=== PATIENT | female | born 1970 | race African-American/Black ===

== ENCOUNTER 2024-06-18 22:07 | Emergency (ER) | payer BC, SELFPAY ==
[2024-06-18 22:10] VITALS: BP 187/103
[2024-06-18 22:13] VITALS: BP 177/104
--- NOTE | 2024-06-18 22:46 | EDRN ---
Orders were placed in triage for EKG and blood work, confirmed none of these things were done in triage.
[2024-06-18 22:49] VITALS: BP 150/80
--- NOTE | 2024-06-18 22:57 | ED.GENMED ---
History of Present Illness
General
Chief Complaint: Blood Pressure Problem
Source: patient
Exam Limitations: none
Time Seen by Provider: 06/18/24 22:52
History of Present Illness
History of Present Illness:
See MDM
Past History
Past History
ED Past Medical History: HTN
ED Past Surgical History: None
Social History
Tobacco: Non-smoker
Alcohol: None
Phy Exam
Physical Exam
Physical Exam:
See MDM
Course
Orders/Labs/Results
Orders:
Orders
06/18/24 22:24
Electrocardiogram (*1) Urgent
Reason for Study: Hypertension, Benign
06/18/24 22:25
EKG- Treatment ONCE
06/18/24 22:57
Amlodipine [Norvasc] 10 mg PO ONCE ONE
06/18/24 23:15
CMP [Comprehensive Metabolic Panel] Urgent
Complete Blood Count/With Diff Urgent
Troponin I Urgent
06/19/24 00:02
CT Head W/o Iv Contrast Urgent
Reason For Exam: sudden onset headache
Abnormal Lab Results
06/18/24
23:15
Glucose 120 H mg/dl
(70-99)
06/18/24 23:15
06/18/24 23:15
Vital Signs
Initial and Last Documented VS:
Initial Vital Signs
Temp Pulse Resp BP Pulse Ox
98.4 F 69 16 187/103 100
06/18/24 22:10 06/18/24 22:10 06/18/24 22:10 06/18/24 22:10 06/18/24 22:10
Last Documented Vital Signs
Temp Pulse Resp BP Pulse Ox
98.4 F 66 16 141/76 100
06/18/24 22:10 06/19/24 01:27 06/19/24 01:27 06/19/24 01:27 06/19/24 01:27
MDM/Problems Addressed
Differential Diagnosis Includes:
HPI and MDM Narrative:
54-year-old female presenting for evaluation of sudden onset headache. This occurred around 9 PM. Patient states she was sitting down working when she noted it. She describes a headache as throbbing and to the right and left side of her scalp.
The headache has since improved. Patient found to be hypertensive on arrival and she does acknowledge that she has not taking her amlodipine about a week. She states has been busy and unable to pick it up at the pharmacy. Will give dose of
amlodipine here. Will obtain basic blood work to rule out any evidence of hypertension emergency. Given sudden onset of headache, will obtain CT head
Physical exam
General: Well appearing and non-toxic
HEENT: protecting airway. Pupils equal reactive. EOMI
Neck: appears supple
CV: No evidence of cyanosis. Regular rate and rhythm
Resp: No accessory muscle use
Abd: Non-distended
Extremities: No deformities
Neuro: alert. No focal deficit
Psych: Normal affect
Skin: Intact
Problems Addressed including Acute and Chronic Conditions affecting care:
1. Sudden onset headache
Acuity: acute
Prognosis: stable
Details: Will obtain CT head to rule out subarachnoid
2. Hypertension
Acuity: acute on chronic
Prognosis: stable
Details: Will provide her dose of amlodipine and obtain basic blood work to rule out any evidence of endorgan damage
Updates
CT head negative. Blood work without evidence of endorgan damage. Patient was comfortable going home and remains symptom-free
Differential Diagnosis (but not limited to): Pretension, medication noncompliance, subarachnoid hemorrhage
Testing considered: CTA
Drug therapy (if applicable): OTC meds, please see d/c instruction regarding Rx drugs
Amount and/or Complexity of Data Reviewed
Clinical info obtained from: Patient
External data reviewed: N/A
Labs I independently reviewed (but not limited to): Troponin negative
Radiology: The CT scan was personally and independently reviewed. In addition, official CT report reviewed.
Pulse Ox: not hypoxic
EKG independently reviewed: Sinus rhythm, normal axis, no STEMI
Stable Attendant: N/A
Critical Care: N/A
Risk of Complication:
Social Determinants of health: Good social support
Discussed with other providers: N/A
Escalation of Care includes Admit/Obs: After being observed in the Emergency Department, pt stable for discharge.
Occasional wrong word or 'sound a like' substitutions may have occurred due to the inherent limitations of voice recognition software. Read the chart carefully and recognize, using context, where substitutions have occurred.
*Critical Care Note
Total Time (30-74mins, 75-104mins- exclusive of procedures): Not Applicable
ED Attending Note
-
Portions of this chart may have been created with voice recognition software.� Occasional wrong word or��sound alike� substitutions may have occurred due to the inherent limitations of voice recognition software.
Discharge Plan
Departure
Patient Disposition: Home (Routine Discharge)
Date of Disposition: 06/19/24
Time of Disposition: 01:32
Patient with high blood pressure during this ER visit?: Yes
Discharge Problem:
Headache
Instructions: Headache, Adult (DC), BLOOD PRESSURE
Prescriptions:
No Action
amlodipine 10 mg Tablet
10 mg PO DAILY
Referrals:
Jackie Andrews MD [Family Provider] -
Activity Restrictions/Additional Instructions:
Please return for any worsening symptoms.
You may return at any time if you have further concerns.
Please follow up with your doctor at the first available appointment, preferably this week.
Thank you for choosing [facility].
Interventions
Interventions:
*Risk Screen - Suicide Last Done: 06/18/24 22:12
*General Assessment Last Done: 06/18/24 23:01
*Neglect/Abuse Screening Last Done: 06/18/24 22:12
*ED- Fall Risk Assessment Last Done: 06/18/24 22:10
*ED COVID-19 Vaccine History Last Done: 06/18/24 23:01
ED- Cardiac Assessment Last Done: 06/18/24 23:21
ED- Neurological Assessment Last Done: 06/18/24 23:21
ED- Pulmonary Assessment Last Done: 06/18/24 23:21
Discharge Date and Time
Print Language: ROMANIAN
[2024-06-18 23:00] VITALS: BP 166/87
[2024-06-18] MEDS: NORVASC 10 MG PO (23:07)
--- NOTE | 2024-06-18 23:23 | EDRN ---
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 Pt had not eaten much today so she ate food she brought with her but it did not help her symptoms so she came
down to the ED for evaluation. Pt took 400mg motrin for headache around 1630. Pt takes amlodipine 10mg daily however she has not picked up her prescription at the pharmacy for the past week. Pt adds she has been under stress because her sister
had a TN and recently and she has a brother at home that requires a urszula due to health issues. Pt acknowledges seriousness of uncontrolled htn. Pt feeling better now. Headache has lessened and dizziness is gone. No cp, sob,
fever/chills/cough, weakness, n/v, photophobia.
[2024-06-18 23:33] LABS: ALT (SGPT) 26 U/L (0-35); AST (SGOT) 26 U/L (14-36); Albumin 3.9 g/dl (3.5-5.0); Alkaline Phosphatase 76 U/L (38-126); Blood Urea Nitrogen 16 mg/dl (7-17); Calcium 9.1 mg/dl (8.4-10.2); Carbon Dioxide 28 mmol/L (22-30); Chloride 106 mmol/L (98-107); Glucose 120 mg/dl (70-99); Potassium 4.1 mmol/L (3.5-5.1); Sodium 141 mmol/L (135-145); Total Bilirubin 0.4 mg/dl (0.2-1.3); Total Protein 7.4 g/dl (6.3-8.2); eGFR > 60.00
[2024-06-18 23:34] LABS: Hematocrit 37.9 % (37.0-47.0); Hemoglobin 12.9 g/dL (12.0-16.0); Mean Corpuscular Hgb 27.9 pg (27.0-31.0); Mean Platelet Volume 8.4 fL (7.4-10.4); Platelet Count 307 10^3/uL (130-400); Red Blood Cell Count 4.62 10^6/uL (4.20-5.40); Red Cell Dist. Width 13.9 % (11.5-14.5); White Blood Cell Count 6.8 10^3/uL (4.8-10.8)
[2024-06-18 23:45] LABS: Troponin I 0.013 ng/ml
[2024-06-18 23:58] LABS: % Basophils 0.9 % (0-2); % Eosinophils 3.3 % (0-6); % Immature Granulocytes 0.4 % (0-0.5); % Lymphocytes 42.7 % (20.5-51.1); % Monocytes 8.6 % (1.7-9.3); % Neutrophils 44.1 % (42.2-75.2); Absolute Basophils 0.1 10^3/uL (0-0.2); Absolute Eosinophils 0.2 10^3/uL (0-0.7); Absolute Lymphocytes 2.9 10^3/uL (1.2-3.4); Absolute Monocytes 0.6 10^3/uL (0.1-0.6); Nucleated Red Blood Cells % 0 %
[2024-06-19] VITALS: BP 153/76
[2024-06-19 01:27] VITALS: BP 141/76
== END 2024-06-19 01:42 | disposition home or self-care (01) ==
LOC: EMR 22:07
PROVIDERS: EMERGENCY PHYSICIAN Student in an Organized Health Care Education/Training Program; FAMILY PHYSICIAN Internal Medicine
DX: R51.9 Headache, unspecified (principal); I10 Essential (primary) hypertension
CPT/HCPCS: 99284; 70450; 80053; 84484; 85025; 93005